=== PATIENT | male | born 1930 | race Caucasian/White ===

== ENCOUNTER 2017-07-12 08:23 | Inpatient (IN) | payer OTHER ==
[~2017-07-12] VITALS: Ht 172.7 cm; Wt 64.2 kg
[2017-07-12 08:27] VITALS: Ht 172.7 cm; Wt 64.2 kg
[2017-07-12 08:53] LABS: BASOPHIL % 0.7 % (0-2); PLATELET COUNT 149 x10^3mcL (130-400); RED CELL DISTRIBUTION WIDTH 13.2 % (11.5-14.5)
[2017-07-12 09:02] LABS: CALCIUM 8.8 mg/dL (8.5-10.1); CARBON DIOXIDE 25.2 mmol/L (21-32); CHLORIDE SERUM 107 mmol/L (98-107); CREATININE SERUM 1.2 mg/dL (0.7-1.3); GLUCOSE SERUM 101 mg/dL (74-106); POTASSIUM SERUM 4.3 mmol/L (3.5-5.1); SODIUM SERUM 140 mmol/L (136-145)
[2017-07-12 09:06] LABS: ALKALINE PHOSPHATASE 55 U/L (46-116); ALT/SGPT 20 U/L (16-63); AST/SGOT 23 U/L (15-37); BILIRUBIN TOTAL 0.5 mg/dL (0.20-1.00); TOTAL PROTEIN, SERUM 6.7 g/dL (6.4-8.2)
[2017-07-12 09:07] LABS: ALBUMIN 3.3 g/dL (3.4-5.0)
[2017-07-12] MEDS ORDERED: ASPIR 8181 MG PO (10:02)
[2017-07-12 11:13] VITALS: BP 154/74
[2017-07-12] MEDS ORDERED: BETIMOL5 M1 OU (12:18)
[2017-07-12] MEDS ORDERED: LATANOPROST2.5 ML OD (12:19)
[2017-07-12] MEDS ORDERED: DORZOLAMIDE HYD10 ML OU (12:23)
[2017-07-12 13:46] LABS: MAGNESIUM 2.1 mg/dL (1.8-2.4); PHOSPHOROUS 3.3 mg/dL (2.5-4.9)
[2017-07-12 13:47] LABS: CHOLESTEROL/HDL RATIO 2.3
[2017-07-12 13:48] LABS: T3 TOTAL 0.69 ng/mL
[2017-07-12 13:55] LABS: FREE T4 1.07 ng/dL (0.76-1.46); FREE THYROXINE INDEX 2.9 ug/dL (1.4-4.5); T4(THYROXINE) 8.4 ug/dL (4.7-13.3)
[2017-07-12] MEDS ORDERED: LEVOTHYROXINE0.1 M2 PO (16:25)
[2017-07-12 16:40] LABS: microscopic required? NO
[2017-07-12 16:45] LABS: UA SPECIFIC GRAVITY 1.015 (1.005-1.035); urine erythrocyte NEGATIVE (NEGATIVE)
[2017-07-12 17:43] VITALS: BP 129/62
[2017-07-12 21:03] VITALS: BP 128/81
[2017-07-13 05:15] VITALS: BP 165/60
[2017-07-13 09:41] VITALS: BP 118/53
[2017-07-13 13:58] VITALS: BP 149/59
[2017-07-13 17:49] VITALS: BP 162/75
[2017-07-13 21:32] VITALS: BP 136/66
[2017-07-14 05:01] VITALS: BP 143/64
[2017-07-14 06:23] LABS: BASOPHIL % 0.5 % (0-2); PLATELET COUNT 133 x10^3mcL (130-400); RED CELL DISTRIBUTION WIDTH 13.1 % (11.5-14.5)
[2017-07-14 06:27] LABS: CALCIUM 8.5 mg/dL (8.5-10.1); CARBON DIOXIDE 25.6 mmol/L (21-32); CHLORIDE SERUM 110 mmol/L (98-107); CREATININE SERUM 1.2 mg/dL (0.7-1.3); GLUCOSE SERUM 89 mg/dL (74-106); MAGNESIUM 1.9 mg/dL (1.8-2.4); PHOSPHOROUS 2.9 mg/dL (2.5-4.9); POTASSIUM SERUM 4.8 mmol/L (3.5-5.1); SODIUM SERUM 142 mmol/L (136-145)
[2017-07-14 08:30] VITALS: BP 157/87
[2017-07-14] MEDS ORDERED: NOR5 PO (11:40)
[2017-07-14] MEDS ORDERED: CORGARD40 M1 PO (12:12)
[2017-07-14 12:13] VITALS: BP 157/87
== END 2017-07-14 14:00 | disposition home health service (06) | DRG 312 ==
LOC: ED 08:23 → DU 09:58
PROVIDERS: Emergency Medicine; Family Medicine
DX: R55 Syncope and collapse (principal); N17.0 Acute kidney failure with tubular necrosis; E44.1 Mild protein-calorie malnutrition; I42.9 Cardiomyopathy, unspecified; I11.9 Hypertensive heart disease without heart failure; R00.1 Bradycardia, unspecified; E03.9 Hypothyroidism, unspecified; D53.9 Nutritional anemia, unspecified; H40.9 Unspecified glaucoma; Z79.82 Long term (current) use of aspirin; Z68.22 Body mass index [BMI] 22.0-22.9, adult
CPT/HCPCS: 82962; 83880; 84439; 97110-GP; 97116-GP; 97530-GP; J7030; Q0092